=== PATIENT | male | born 1995 | race Caucasian/White ===

== ENCOUNTER 2016-12-25 06:21 | Emergency (ER) | payer MEDICAID ==
[2016-12-25 06:28] VITALS: RESP 16
--- NOTE | 2016-12-25 06:41 | EDPHY ---
H & P Stated Complaint: off medication, needs to get back on them Time Seen by Provider: 12/25/16 06:30 HPI/ROS: Chief Complaint: Suicidal, requesting mental health evaluation HPI: 21-year-old male with a history of schizophrenia presenting complaint asking for mental health evaluation. Patient states he feels he needs medication. Patient states he has not been taking medication for over 5 months. He has a history of noncompliance in the past. He is feeling suicidal but does not have any specific plan. Denies any hallucinations. Feels very disorganized and having difficulty concentrating and deciding what is real and what is not. Denies any recent illness. No fevers or chills. Denies any ingestions. States that he does smoke cigarettes and uses care occasional marijuana but denies any other drug use. Is not able to contract for safety at this time. ROS: 10 point Review of Systems is negative except as noted in the HPI. PMH: Schizophrenia Social History: Positive for smoking, no alcohol, occasional marijuana, denies other drug use Family History: non-contributory Physical Exam: Gen: Awake, Alert, No Distress HEENT: Nose: no rhinorrhea Eyes: PERRLA, EOMI Mouth: Moist mucosa Neck: Supple, no JVD Chest: nontender, lungs clear to auscultation Heart: S1, S2 normal, no murmur Abd: Soft, non-tender, no guarding Back: no CVA tenderness, no midline tenderness Ext: no edema, non-tender Skin: no rash Neuro: CN II-XII intact, Sensation grossly intact, Strength 5/5 in bilateral upper and lower extremities - Personal History Current Tetanus/Diphtheria Vaccine: Unsure Current Tetanus Diphtheria and Acellular Pertussis (TDAP): Unsure - Medical/Surgical History Hx Asthma: No Hx Chronic Respiratory Disease: No Hx Diabetes: No Hx Cardiac Disease: No Hx Renal Disease: No Hx Cirrhosis: No Hx Alcoholism: No Hx HIV/AIDS: No Hx Splenectomy or Spleen Trauma: No Other PMH: Schizophrenia; pt denies PMH however EPS report states pt d/c from for head injury--uncertain if this is a fact. - Social History Smoking Status: Current some day smoker Constitutional: Initial Vital Signs Temperature (C) 36.4 C 12/25/16 06:24 Heart Rate 78 12/25/16 06:24 Respiratory Rate 16 12/25/16 06:24 Blood Pressure 115/63 12/25/16 06:24 O2 Sat (%) 97 12/25/16 06:24 O2 Delivery Mode Room Air Allergies/Adverse Reactions: No Known Allergies Allergy (Verified 11/11/15 13:54) Home Medications: Medication Instructions Recorded ARIPiprazole [Abilify 10 mg (*)] 15 mg PO DAILY #30 tab 06/23/16 Aripiprazole [Abilify Maintena] 400 mg IM Q4 #1 [email or web address] 06/23/16 Medical Decision Making ED Course/Re-evaluation: 21-year-old male who is a history of schizophrenia off his medication who is disorganized and feeling suicidal. Does not have a specific plan. Patient has been placed in a detain her here. Will send labs for medical clearance and plan for mental health evaluation. 0700 Pt s/o to Dr Castellanos pending evaluation. Departure - Departure Referrals: NONE *PRIMARY CARE P,. [Primary Care Provider] - As per Instructions
[2016-12-25 06:55] LABS: % IMMATURE GRANULYOCYTES 0.4 % (0.0-1.1); ABSOLUTE IMMATURE GRANULOCYTES 0.03 10^3/uL (0.00-0.10); ADD DIFF? NO; ADD MORPH? NO; ADD SCAN? NO; ATYPICAL LYMPHOCYTE FLAG 10 (0-99); FRAGMENT RBC FLAG 0 (0-99); HEMATOCRIT 41.2 % (40.0-51.0); HEMOGLOBIN 14.7 g/dL (13.7-17.5); LEFT SHIFT FLG 0 (0-99); LIPEMIA HEMOLYSIS FLAG 90 (0-99); MEAN CELL HEMOGLOBIN CONCENTR. 35.7 g/dL (32.4-36.7); MEAN CELL VOLUME 89.8 fL (81.5-99.8); MEAN PLATELET VOLUME 8.9 fL (8.7-11.7); PLATELET CLUMPS FLAG 0 (0-99); PLATELET COUNT 220 10^3/uL (150-400); RED BLOOD CELL COUNT 4.59 10^6/uL (4.40-6.38); RED CELL DISTRIBUTION WIDTH 12.5 % (11.5-15.2)
[2016-12-25 07:27] LABS: ANION GAP 11 mEq/L (8-16); CALCIUM 8.7 mg/dL (8.5-10.4); CARBON DIOXIDE 23 mEq/l (22-31); CHLORIDE 109 mEq/L (97-110); CREATININE 0.8 mg/dL (0.7-1.3); ETHANOL SERUM < 10 mg/dL (0-10); GLOMERULAR FILTRATION RATE > 60; GLUCOSE 96 mg/dL (70-100); POTASSIUM 3.9 mEq/L (3.5-5.2); SODIUM 143 mEq/L (134-144)
[2016-12-25 15:01] VITALS: PULSE 72
[2016-12-25 15:43] VITALS: BP 110/70; TEMP 98.1; O2SAT 97
[2016-12-26] MEDS ORDERED: ARIPiprazole 10 MG TAB PO SCH (09:00)
== END 2016-12-25 15:01 | disposition home or self-care (01) ==
DX: F20.9 Schizophrenia, unspecified (principal); F17.200 Nicotine dependence, unspecified, uncomplicated
CPT/HCPCS: 80305; G0480

== ENCOUNTER 2017-01-19 18:32 | Emergency (ER) | payer MEDICAID ==
[2017-01-19 18:47] VITALS: BP 100/64; PULSE 86; RESP 18; TEMP 98.1; O2SAT 95
--- NOTE | 2017-01-19 20:13 | EDPHY ---
H & P Smoking Status: Current some day smoker HPI/ROS: Chief complaint: Right 5th finger laceration History of present illness: This is a 21-year-old male who presents to the emergency department for a right 5th finger laceration. Patient states he cut his finger on a piece of glass. There has been pain around the laceration. Bleeding has been controlled with a dressing. He denies abnormal coolness or paresthesias in the finger. He is moving the finger well. Tetanus is up-to- date. (Caesar Albert) Physical Exam: General: Alert, nontoxic Skin: There is a 1.5 cm laceration to the lateral aspect of the right 5th finger Musculoskeletal: Patient is flexing and extending his right 5th finger in the DIP, PIP and MCP joint well. Vascular: Capillary refill brisk in the right 5th finger. Neurologic: Sensation appears intact in the right 5th finger using light touch and two-point discrimination. (Caesar Albert) Constitutional: Initial Vital Signs Temperature (C) 36.7 C 01/19/17 18:43 Heart Rate 86 01/19/17 18:43 Respiratory Rate 18 01/19/17 18:43 Blood Pressure 100/64 01/19/17 18:43 O2 Sat (%) 95 01/19/17 18:43 Allergies/Adverse Reactions: No Known Allergies Allergy (Verified 11/11/15 13:54) Home Medications: Medication Instructions Recorded NK [No Known Home Meds] 01/19/17 MDM/Departure - [facility] Imaging: I viewed and interpreted images myself - [facility] Procedures: Procedure: Laceration repair. Verbal consent was obtained from the patient. The 1.5 cm laceration on the right 5th finger was anesthetized in the usual fashion. The wound was irrigated , draped and explored to its base with a gloved finger. There were no deep structures involved. No tendon injury was identified. The wound was repaired with 5 0 Prolene, 6 simple interrupted sutures. The wound repair was simple. The procedure was performed by myself. (Caesar Albert) ED Course/Re-evaluation: Patient seen under the supervision of my secondary supervising physician Dr. Eileen Douglas. Patient presents to the emergency department for laceration to his right 5th finger. The finger is neurovascularly intact. He has good musculoskeletal control of the finger. No foreign bodies noted. His tetanus is up-to-date. X-rays negative. Wound is repaired, dressed. Patient is discharged home. Home care is discussed. He is referred to Hand surgery for recheck. Return precautions are given. (Caesar Albert) The patient was evaluated and managed by the physician assistant fitness manager. I have reviewed this chart and I agree with the findings and plan of care as documented , as indicated by my signature. I am the secondary supervising physician. ( Eileen Douglas) Differential Diagnosis: Included but not limited to laceration, deep structure injury, foreign body contamination (Caesar Albert) - Depart Disposition: Home, Routine, Self-Care Clinical Impression: Finger laceration Condition: Good Instructions: Finger Laceration (ED), Acute Wounds (ED) Additional Instructions: Follow-up with a hand doctor for recheck Stitches to be removed in 7 days If symptoms worsen or new symptoms develop return to the emergency room for recheck Referrals: NONE *PRIMARY CARE P,. [Primary Care Provider] - As per Instructions Joyce Avilez MD [Medical Doctor] - As per Instructions
== END 2017-01-19 20:33 | disposition home or self-care (01) ==
LOC: EDUNIT#
PROC: 0HQFXZZ Repair Right Hand Skin, External Approach (ICD-10-PCS; principal; 2017-01-19)
DX: S61.216A Laceration without foreign body of right little finger without damage to nail, initial encounter (principal); F17.200 Nicotine dependence, unspecified, uncomplicated; W25.XXXA Contact with sharp glass, initial encounter; Y93.89 Activity, other specified

== ENCOUNTER 2017-02-04 10:15 | Emergency (ER) | payer MEDICAID ==
[2017-02-04] MEDS ORDERED: LORazepam 2 MG/ML INJ ONE (10:19)
[2017-02-04] MEDS ORDERED: HALOPERIDOL LACT 5 MG/ML INJ ONE (10:19)
[2017-02-04] MEDS ORDERED: LORazepam 2 MG/ML INJ IM ONE (10:19)
[2017-02-04] MEDS ORDERED: HALOPERIDOL LACT 5 MG/ML INJ IM ONE (10:19)
--- NOTE | 2017-02-04 10:33 | EDPHY ---
H & P Smoking Status: Current some day smoker Time Seen by Provider: 02/04/17 10:15 HPI/ROS: CHIEF COMPLAINT: Psychiatric mental health hold HISTORY OF PRESENT ILLNESS: [facility] for [facility]. When the vacuum metalizer operator told him this morning he was going to be on a mental health hold got very aggressive and it took for police officers and ambulance crew to bring him to the emergency department on the hold. In the ER is no medical complaints. He says he went to mental health last night because he felt like he needed help. When asked why, he will only say to me "because I'm set." REVIEW OF SYSTEMS: Eye: no change in vision ENT: no sore throat Cardiac: no chest pain or syncope Pulmonary: no cough or SOB Abdomen: no vomiting, diarrhea, abdominal pain Musculoskeletal: no back pain Skin: no rash Neuro: no headache Constitutional: no fever : no urinary symptoms A comprehensive 10 point review of systems is otherwise negative aside from elements mentioned in the history of present illness. PAST MEDICAL HISTORY: Schizoaffective disorder, pinky laceration on the right hand 01/19/17 Social history: Denies drugs or alcohol General Appearance: Alert and looking around spontaneously. Eyes: No scleral icterus. ENT, Mouth: Normal mucous membranes. Respiratory: Normal respiratory effort, breath sounds equal, lungs are clear to auscultation. Cardiovascular: Regular rate and rhythm. Gastrointestinal: Abdomen is soft and non tender. Neurological: Alert and currently follows commands. Short 1-2 word answers to questions. Face symmetric, normal movement and sensation in all extremities. Skin: Abrasions to the knuckles of the right hand but no lacerations. Musculoskeletal: Sutures in the ulnar side of the right pinky finger at the PIP with normal range of motion, no redness swelling discharge drainage or decrease and flexion. No bony tenderness in extremities. Psychiatric: Initially common restrained, intermittently agitated. Emergency Department course/MDM: 5mg IM Haldol and 2 mg IM Ativan for agitation are responsive to 1 on 1, reassurance; for patient's safety and our ability to facilitate appropriate medical screening examination. Calmer afterwards, signed out to Kami at 1500 with psychiatric evaluation pending. (Librado Cameron) Constitutional: Initial Vital Signs Temperature (C) 36.1 C 02/04/17 10:50 Heart Rate 89 02/04/17 10:50 Respiratory Rate 20 02/04/17 10:50 Blood Pressure 104/73 02/04/17 10:50 O2 Sat (%) 95 02/04/17 10:50 O2 Delivery Mode Room Air Allergies/Adverse Reactions: No Known Allergies Allergy (Verified 11/11/15 13:54) Home Medications: Medication Instructions Recorded NK [No Known Home Meds] 01/19/17 Medical Decision Making ED Course/Re-evaluation: 0700: Patient signed out to me by Dr. Castellanos at shift change. He is awaiting evaluation. 11:30am: Haldol and Ativan IM given for acute agitation. 1223: Consulted with mental health vacuum metalizer operator. She reports that the patient qualifies for inpatient care. EPS will look for placement. 3pm: signed over to Dr. Garduno at shift change. (Rachelle Overton) Patient has remained stable on my shift without any acute agitation or requirement for more medication. (Mal Garduno) 0624AM: No acute events overnight. Patient did finally give a urine sample he is now medically cleared , he is on M1 hold order evaluated. He will need placement. Patient signed over to Dr. Overton at 7am Shift-change. 0146AM: 02/06/17: The patient accepted [facility] by Dr. Browning. Patella filled out. Patient be appropriately transfer. (Raffaele Castellanos) Differential Diagnosis: Differential for agitation considered including but not limited to hypoglycemia , alcohol or drug, other intoxicants, metabolic, schizoaffective disorder or other psychiatric. (Librado Cameron) Other Provider: Patient has been sleeping throughout my shift. He has had no complaints. We continue to await placement. Care transferred to Dr. Raffaele Castellanos at 11:00 p.m.. (Suman Mcclure) Care Turn Over: Care turned over to Dr. Castellanos at midnight (Mal Garduno) - Data Points Laboratory Results: Laboratory Results 02/04/17 10:45 02/04/17 10:45 Medications Given: Discontinued Medications Haloperidol Lactate (Haldol Injection) 10 mg IM EDNOW ONE Stop: 02/04/17 10:20 Last Admin: 02/04/17 10:50 Dose: 5 mg Haloperidol Lactate (Haldol Injection) 10 mg IM EDNOW ONE Stop: 02/05/17 11:44 Last Admin: 02/05/17 12:05 Dose: 10 mg Lorazepam (Ativan Injection) 2 mg IM EDNOW ONE Stop: 02/04/17 10:20 Last Admin: 02/04/17 10:50 Dose: 2 mg Lorazepam (Ativan Injection) 2 mg IM EDNOW ONE Stop: 02/05/17 11:44 Last Admin: 02/05/17 12:05 Dose: 2 mg Lorazepam (Ativan) 2 mg PO EDNOW ONE Stop: 02/06/17 01:20 Last Admin: 02/06/17 01:43 Dose: 2 mg Departure - Departure Disposition: [facility] Not [facility] Clinical Impression: Schizoaffective disorder Qualifiers: Schizoaffective disorder type: unspecified Qualified Code(s): F25.9 - Schizoaffective disorder, unspecified Condition: Good Referrals: NONE *PRIMARY CARE P,. [Primary Care Provider] - As per Instructions
[2017-02-04 10:50] LABS: % IMMATURE GRANULYOCYTES 0.2 % (0.0-1.1); ABSOLUTE IMMATURE GRANULOCYTES 0.01 10^3/uL (0.00-0.10); ADD DIFF? NO; ADD MORPH? NO; ADD SCAN? NO; ATYPICAL LYMPHOCYTE FLAG 30 (0-99); FRAGMENT RBC FLAG 0 (0-99); HEMATOCRIT 41.6 % (40.0-51.0); HEMOGLOBIN 14.9 g/dL (13.7-17.5); LEFT SHIFT FLG 0 (0-99); LIPEMIA HEMOLYSIS FLAG 90 (0-99); MEAN CELL HEMOGLOBIN 31.6 pg (27.9-34.1); MEAN CELL HEMOGLOBIN CONCENTR. 35.8 g/dL (32.4-36.7); MEAN CELL VOLUME 88.1 fL (81.5-99.8); MEAN PLATELET VOLUME 9.1 fL (8.7-11.7); PLATELET CLUMPS FLAG 0 (0-99); PLATELET COUNT 204 10^3/uL (150-400); RED BLOOD CELL COUNT 4.72 10^6/uL (4.40-6.38); RED CELL DISTRIBUTION WIDTH 12.4 % (11.5-15.2)
[2017-02-04 10:52] VITALS: TEMP 97
[2017-02-04 11:10] LABS: ANION GAP 11 mEq/L (8-16); CALCIUM 9.5 mg/dL (8.5-10.4); CARBON DIOXIDE 23 mEq/l (22-31); CHLORIDE 107 mEq/L (97-110); CREATININE 0.8 mg/dL (0.7-1.3); ETHANOL SERUM < 10 mg/dL (0-10); GLOMERULAR FILTRATION RATE > 60; GLUCOSE 96 mg/dL (70-100); POTASSIUM 4.1 mEq/L (3.5-5.2); SALICYLATE < 1.0 mg/dL (2.0-20.0); SODIUM 141 mEq/L (134-144)
[2017-02-05] MEDS ORDERED: HALOPERIDOL LACT 5 MG/ML INJ ONE ×2 (11:40→11:44)
[2017-02-05] MEDS ORDERED: LORazepam 2 MG/ML INJ ONE (11:41)
[2017-02-05] MEDS ORDERED: HALOPERIDOL LACT 5 MG/ML INJ IM ONE (11:43)
[2017-02-05] MEDS ORDERED: LORazepam 2 MG/ML INJ IM ONE (11:43)
[2017-02-06] MEDS ORDERED: LORazepam 1 MG TAB PO ONE (01:19)
[2017-02-06 01:58] VITALS: BP 116/76; PULSE 52; RESP 16; O2SAT 97
== END 2017-02-06 01:52 | disposition short-term general hospital (02) ==
LOC: EDUNIT#
DX: F25.9 Schizoaffective disorder, unspecified (principal); F17.200 Nicotine dependence, unspecified, uncomplicated
CPT/HCPCS: 80305; G0480; J2060

== ENCOUNTER 2018-12-06 04:04 | Emergency (ER) | payer OTHER, MEDICAID ==
[2018-12-06 04:11] VITALS: BP 115/79
--- NOTE | 2018-12-06 04:50 | EDPHY ---
H & P Stated Complaint: needs psych med change, not working, anxiety Time Seen by Provider: 12/06/18 04:46 HPI/ROS: Chief Complaint: Wants psychiatric medications changed HPI: 22-year-old male with a history of schizoaffective disorder is presenting with request to have his medications changed. Patient states he was recently discharged from the hospital 3 weeks ago. He was getting his to healthcare in [place]. Patient states he has been on the same medications for about the last 12 years. He would like to change ease as he feels that these would be useful to his well being. He denies being suicidal or homicidal. He is not hallucinating. He is not feeling paranoid. He did not know where else to go story came here for evaluation. Denies recent illness. No fevers or chills. No nausea or vomiting. No diarrhea or constipation. Patient is conversant logical. ROS: 10 systems were reviewed and were negative except those elements noted in the HPI. PMH: Schizoaffective disorder Social History: Positive smoking, denies alcohol Family History: non-contributory Physical Exam: Gen: Awake, Alert, No Distress HEENT: Nose: no rhinorrhea Eyes: PERRLA, EOMI Mouth: Moist mucosa Neck: Supple, no JVD Chest: nontender, lungs clear to auscultation Heart: S1, S2 normal, no murmur Abd: Soft, non-tender, no guarding Back: no CVA tenderness, no midline tenderness Ext: no edema, non-tender Skin: no rash Neuro: CN II-XII intact, Sensation grossly intact, Strength 5/5 in bilateral upper and lower extremities - Personal History Current Tetanus Diphtheria and Acellular Pertussis (TDAP): No - Medical/Surgical History Hx Asthma: No Hx Chronic Respiratory Disease: No Hx Diabetes: No Hx Cardiac Disease: No Hx Renal Disease: No Hx Cirrhosis: No Hx Alcoholism: No Hx HIV/AIDS: No Hx Splenectomy or Spleen Trauma: No Other PMH: Schizophrenia; pt denies PMH however EPS report states pt d/c from for head injury--uncertain if this is a fact. - Social History Smoking Status: Current some day smoker Constitutional: Initial Vital Signs Temperature (C) 36.4 C 12/06/18 04:08 Heart Rate 105 H 12/06/18 04:08 Respiratory Rate 18 12/06/18 04:08 Blood Pressure 115/79 12/06/18 04:08 O2 Sat (%) 95 12/06/18 04:08 O2 Delivery Mode Room Air Allergies/Adverse Reactions: risperidone [From Risperdal] Allergy (Verified 12/06/18 04:07) Home Medications: Medication Instructions Recorded Depakote 12/06/18 Risperdal 12/06/18 Medical Decision Making ED Course/Re-evaluation: 22-year-old male presenting asking for changes to his psychiatric medications. The patient is currently not gravely disabled or suicidal. No findings to suggest a need for acute hospitalization. Plan will be to discharge with referral to [facility], return for any concerns. Departure - Departure Disposition: Home, Routine, Self-Care Clinical Impression: Schizoaffective disorder Condition: Good Instructions: Schizoaffective Disorder (ED) Additional Instructions: Follow up with [facility] to discuss changes to your psychiatric medications. Referrals: [facility],. [Clinic] - As per Instructions
== END 2018-12-06 05:04 | disposition home or self-care (01) ==
DX: F25.9 Schizoaffective disorder, unspecified (principal); F17.200 Nicotine dependence, unspecified, uncomplicated